=== PATIENT | male | born 1975 | race African-American/Black ===

== ENCOUNTER 2017-12-14 22:16 | Observation (INO) | payer OTHER ==
[~2017-12-14] VITALS: Ht 175.3 cm; Wt 104.4 kg
[~2017-12-14 22:16] MED LIST: CETI-17 PO; DAPA5TAB PO; DICL100G18 TP; ENOXAPARIN ** NOTE DOSE ** SYRINGE SQ ONE; LOSA100T6 PO; METF500T PO; PANT40TA3 PO; RANI-275 PO; TRIA15CR50 TP; [UNRECOGNIZED DRUG - OTHER]
[2017-12-14] MEDS ORDERED: NITROGLYCERIN OINT 1 GM PACKET. TP ONE ×2 (22:45→23:55)
[2017-12-14 22:54] LABS: BASO # 0.1 x10^3/uL (0.0-0.2); BASO % 1 % (0-3); EOS # 0.1 x10^3/uL (0.0-0.7); EOS % 1 % (0-3); HEMOGLOBIN 15.4 g/dL (13.0-17.5); LYMPH # 2.3 x10^3/uL (1.0-4.8); LYMPH % 27 % (24-48); MEAN CORPUSCULAR HEMOGLOBIN 28 pg (25-35); MEAN CORPUSCULAR HGB CONC 34 g/dL (31-37); MEAN CORPUSCULAR VOLUME 84 fL (79-100); MONO # 0.4 x10^3/uL (0.0-1.1); MONO % 5 % (0-9); NEUT # 5.6 x10^3uL (1.8-7.7); NEUT % 66 % (31-73); PLATELET COUNT 311 x10^3/uL (140-400); WHITE BLOOD COUNT 8.5 x10^3/uL (4.0-11.0)
[2017-12-14 23:13] LABS: CALCIUM 9.5 mg/dL (8.5-10.1); CREATININE 0.8 mg/dL (0.7-1.3); GFR 127.7; POTASSIUM 3.5 mmol/L (3.5-5.1)
--- NOTE | 2017-12-14 23:14 | ED.ADGEN ---
Past History Past Medical History: Diabetes, Hypertension Past Surgical History: Appendectomy, Knee Replacement, Other Smoking: Non-smoker Alcohol Use: None Drug Use: None Adult General Chief Complaint Chief Complaint ".. I developed chest pain.. to day... it isa heavy... I ve not had this before... It started at 630 ... and has never gone away..." HPI HPI Patient is a 42 year old male who presents with above hx and complaints. Prior history of angina or myocardial infarction. Patient does have a history of diabetes and hypertension. Patient denies any trauma. Patient denies any travel. Patient denies any ill contacts. Patient denies any cough or fevers. Patient states he has had several episodes of fast heart rate. Review of Systems Review of Systems Constitutional: Denies fever or chills [] Eyes: Denies change in visual acuity, redness, or eye pain [] HENT: Denies nasal congestion or sore throat [] Respiratory: Denies cough or shortness of breath [] Cardiovascular: No additional information not addressed in HPI [] GI: Denies abdominal pain, nausea, vomiting, bloody stools or diarrhea [] : Denies dysuria or hematuria [] Musculoskeletal: Denies back pain or joint pain [] Integument: Denies rash or skin lesions [] Neurologic: Denies headache, focal weakness or sensory changes [] Endocrine: Denies polyuria or polydipsia [] All other systems were reviewed and found to be within normal limits, except as documented in this note. Family History Family History On set of cardiac disease at age 40 Current Medications Current Medications Current Medications Medications (Trade) Dose Ordered Sig/[facility] Start Time Stop Time Status Last Admin Dose Admin Enoxaparin Sodium (Lovenox 120mg Syringe) 120 mg 1X ONCE 12/14/17 09:00 12/14/17 22:53 DC Nitroglycerin (Nitro-Bid Oint) 1 inch 1X ONCE 12/14/17 22:45 12/14/17 22:53 DC 12/14/17 23:58 1 INCH See nursing for home medications Allergies Allergies Allergies Coded Allergies Type Severity Reaction Last Updated Verified aspirin Allergy Unknown hives 07/06/16 Yes Physical Exam Physical Exam Constitutional: Moderately acute distress, non-toxic appearance. [] HENT: Normocephalic, atraumatic, bilateral external ears normal, oropharynx moist, no oral exudates, nose normal. [] Eyes: PERRLA, EOMI, conjunctiva normal, no discharge. [] Neck: Normal range of motion, no tenderness, supple, no stridor. [] Cardiovascular: Tachycardia Heart rate regular rhythm, no murmur [] Lungs & Thorax: Bilateral breath sounds equal at apex on auscultation [] Abdomen: Bowel sounds normal, soft, no tenderness, no masses, no pulsatile masses. [] Obese Skin: Warm, dry, no erythema, no rash. [] Back: No tenderness, no CVA tenderness. [] Extremities: No tenderness, no cyanosis, no clubbing, ROM intact, ankle edema. [ ] No cording appreciated Neurologic: Alert and oriented X 3, normal motor function, normal sensory function, no focal deficits noted. [] Psychologic: Affect anxious, judgement normal, mood normal. [] Current Patient Data Vital Signs Vital Signs Date Time Temp Pulse Resp B/P (MAP) Pulse Ox O2 Delivery O2 Flow Rate FiO2 12/14/17 22:16 98.2 112 22 99 Room Air Lab Results Laboratory Tests Test 12/14/17 22:27 White Blood Count 8.5 x10^3/uL (4.0-11.0) Red Blood Count 5.50 x10^6/uL (4.30-5.70) Hemoglobin 15.4 g/dL (13.0-17.5) Hematocrit 46.0 % (39.0-53.0) Mean Corpuscular Volume 84 fL (79-100) Mean Corpuscular Hemoglobin 28 pg (25-35) Mean Corpuscular Hemoglobin Concent 34 g/dL (31-37) Red Cell Distribution Width 14.0 % (11.5-14.5) Platelet Count 311 x10^3/uL (140-400) Neutrophils (%) (Auto) 66 % (31-73) Lymphocytes (%) (Auto) 27 % (24-48) Monocytes (%) (Auto) 5 % (0-9) Eosinophils (%) (Auto) 1 % (0-3) Basophils (%) (Auto) 1 % (0-3) Neutrophils # (Auto) 5.6 x10^3uL (1.8-7.7) Lymphocytes # (Auto) 2.3 x10^3/uL (1.0-4.8) Monocytes # (Auto) 0.4 x10^3/uL (0.0-1.1) Eosinophils # (Auto) 0.1 x10^3/uL (0.0-0.7) Basophils # (Auto) 0.1 x10^3/uL (0.0-0.2) Prothrombin Time 10.5 SEC (9.4-11.4) Prothrombin Time INR 1.0 (0.9-1.1) D-Dimer (Shu) 0.26 mg/L (0.00-0.50) Sodium Level 140 mmol/L (136-145) Potassium Level 3.5 mmol/L (3.5-5.1) Chloride Level 103 mmol/L (98-107) Carbon Dioxide Level 23 mmol/L (21-32) Anion Gap 14 (6-14) Blood Urea Nitrogen 12 mg/dL (8-26) Creatinine 0.8 mg/dL (0.7-1.3) Estimated GFR (Cockcroft-Gault) 127.7 Glucose Level 102 mg/dL (70-99) H Calcium Level 9.5 mg/dL (8.5-10.1) Creatine Kinase 229 U/L (39-308) Creatine Kinase MB (Mass) 0.7 ng/mL (0.0-3.6) Creatine Kinase MB Relative Index 0.3 % (0-4) Troponin I Quantitative < 0.017 ng/mL (0-0.055) AQ-Btx-A-Type Natriuretic Peptide 6 pg/mL (0-124) EKG EKG My interpretation of EKG shows a sinus tachycardia heart and 7 bpm. There are some nonspecific anterior lateral changes. No findings acute STEMI with contralateral changes.[] Radiology/Procedures Radiology/Procedures I interpretation of chest x-ray shows[] no acute cardiopulmonary findings. Course & Med Decision Making Course & Med Decision Making Pertinent Labs and Imaging studies reviewed. (See chart for details) Admit to Dr. Braxton , cardiology consult [] Final Impression Final Impression 1. Chest pain 2. Tachycardia[] 3. Hx. HTN 4. Hx. DM Dragon Disclaimer Dragon Disclaimer This electronic medical record was generated, in whole or in part, using a voice recognition dictation system. GIGI TYLER MD Dec 14, 2017 23:14
[2017-12-14] MEDS ORDERED: ONDANSETRON ODT 4 MG TAB.RAPDIS PO ONE (23:55)
[2017-12-15] MEDS ORDERED: DEXTROSE 50% 25 GM / 50ML DISP.SYRIN. IV PRN (00:45)
[2017-12-15] MEDS ORDERED: ZOLP5TAB PO (00:58)
[2017-12-15] MEDS ORDERED: SERT100T PO (00:58)
[2017-12-15] MEDS ORDERED: ZOLPIDEM 5 MG TABLET. PO SCH (01:00)
[2017-12-15 01:04] VITALS: BP 150/84
--- NOTE | 2017-12-15 02:12 | RAD ---
PA and lateral chest x-ray HISTORY: Chest pain. FINDINGS: Heart size normal. Mediastinal silhouette is normal. No pneumothorax, pulmonary opacities or pleural effusions. Bones are unremarkable. IMPRESSION: No acute process. Electronically signed by: Omar Pablo MD (12/15/2017 2:09 AM) [facility]
[2017-12-15 02:28] LABS: BACTERIA,URINE 0 /HPF (0-FEW); BILIRUBIN,URINE NEG (NEG); CLARITY,URINE CLEAR; COLOR,URINE YELLOW; GLUCOSE,URINE NEG (NEG); NITRITE,URINE NEG (NEG); RBC,URINE 0 /HPF (0-2); SQUAMOUS EPITHELIAL CELL,UR OCC /LPF; UROBILINOGEN,URINE 1 mg/dL (0.2 mg/dL); WBC,URINE OCC /HPF (0-4)
[2017-12-15] MEDS ORDERED: ACETAMINOPHEN 500 MG TABLET PO PRN (02:45)
[2017-12-15 03:19] LABS: BASO # 0.1 x10^3/uL (0.0-0.2); BASO % 1 % (0-3); EOS # 0.1 x10^3/uL (0.0-0.7); EOS % 1 % (0-3); HEMATOCRIT 43.7 % (39.0-53.0); HEMOGLOBIN 14.6 g/dL (13.0-17.5); LYMPH # 2.3 x10^3/uL (1.0-4.8); LYMPH % 30 % (24-48); MEAN CORPUSCULAR HEMOGLOBIN 28 pg (25-35); MEAN CORPUSCULAR HGB CONC 33 g/dL (31-37); MEAN CORPUSCULAR VOLUME 84 fL (79-100); MONO # 0.5 x10^3/uL (0.0-1.1); MONO % 7 % (0-9); NEUT # 4.7 x10^3uL (1.8-7.7); NEUT % 62 % (31-73); PLATELET COUNT 288 x10^3/uL (140-400); RED BLOOD COUNT 5.23 x10^6/uL (4.30-5.70); WHITE BLOOD COUNT 7.6 x10^3/uL (4.0-11.0)
[2017-12-15 03:44] LABS: CALCIUM 9.3 mg/dL (8.5-10.1); CREATININE 0.9 mg/dL (0.7-1.3); GFR 111.4; POTASSIUM 3.9 mmol/L (3.5-5.1)
--- NOTE | 2017-12-15 03:48 | EKG ---
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
[2017-12-15] MEDS: NITROGLYCERIN OINT 1 GM PACKET. TP SCH ×2 (04:56→14:00)
[2017-12-15 05:29] VITALS: BP 131/76
[2017-12-15 05:31] VITALS: BP 131/76
[2017-12-15] MEDS: ONDANSETRON PF 4 MG/2 ML VIAL. IV PRN ×2 (05:36→15:46)
[2017-12-15] MEDS ORDERED: MORPHINE SULFATE 4 MG/ML DISP.SYRIN. ONE (08:20)
[2017-12-15] MEDS: MORPHINE SULFATE 4 MG/ML DISP.SYRIN. IV PRN ×3 (08:27→15:47)
[2017-12-15] MEDS ORDERED: PANTOPRAZOLE 40 MG TABLET. PO SCH (08:30)
[2017-12-15] MEDS ORDERED: SERTRALINE 100 MG TABLET. PO SCH (09:00)
[2017-12-15] MEDS ORDERED: ENOXAPARIN ** NOTE DOSE ** SYRINGE SQ SCH ×2 (09:00→21:00)
--- NOTE | 2017-12-15 09:25 | PDOC2 ---
CONSULT Date of Admission DATE: 12/15/17 TIME: :23 Reason for Consult: chest pain Problem List Problems Medical Problems: (1) Chest pain Status: Acute History of Present Illness Mr Parada is a 42 year old male with history of hypertension, hyperlipidemia, anxiety and depression who was admitted for evaluation of chest pain. He reports that he was laying down when he had sudden onset of chest heaviness, rapid heart rate and shortness of breath. He assumed it was anxiety but it did not resolve so he presented to the ED for evaluation. He denies any increase of symptoms with exertion, position change, deep inspiration. He is currently symptom free. He denies any similar symptoms previously. He denies any exertional symptoms. He reports that he has been struggling with depression, has not been working and has not been active for this reason. He does have stairs in his house that he is able to walk up and down without symptoms. He denies any congestive symptoms, prior palpitations. He denies lightheadedness, pre syncope or syncope. Cardiovascular: HTN, hyperipidemia GI: GERD Psych: Anxiety, Depression Endocrine: Diabetes Past Surgical History right shoulder, right knee and appendectomy Family History: Diabetes, Hypertension Social History 1/2 ppd smoker, no significant ETOH, no illicit drugs Current Medications Current Medications Nitroglycerin (Nitro-Bid Oint) 1 inch 1X ONCE TP Last administered on at 23:58; Start 12/14/17 at 22:45; Stop 12/14/17 at 22:53; Status DC Enoxaparin Sodium (Lovenox 120mg Syringe) 120 mg 1X ONCE SQ ; Start 12/14/17 at 09:00; Stop 12/14/17 at 22:53; Status DC Enoxaparin Sodium (Lovenox 120mg Syringe) 120 mg BID SQ ; Start 12/15/17 at 09: 00 Nitroglycerin (Nitro-Bid Oint) 1 inch Q8HRS TP ; Start 12/15/17 at 06:00 Nitroglycerin (Nitro-Bid Oint) 1 inch 1X ONCE TP Last administered on at 23:53; Start 12/14/17 at 23:55; Stop 12/14/17 at 23:56; Status DC Ondansetron HCl (Zofran Odt) 8 mg 1X ONCE PO Last administered on 12/14/17at 23 :55; Start 12/14/17 at 23:55; Stop 12/14/17 at 23:56; Status DC Dextrose 12.5 gm PRN Q15MIN PRN IV SEE COMMENTS; Start 12/15/17 at 00:45 Zolpidem Tartrate (Ambien) 5 mg QHS PO Last administered on 12/15/17at 01:18; Start 12/15/17 at 01:00 Acetaminophen (Tylenol) 500 mg PRN Q6HRS PRN PO PAIN / TEMP Last administered on 12/15/17at 02:43; Start 12/15/17 at 02:45 Ondansetron HCl (Zofran) 4 mg PRN Q6HRS PRN IV NAUSEA/VOMITING Last administered on 12/15/17at 05:36; Start 12/15/17 at 05:30 Sertraline HCl (Zoloft) 150 mg DAILY PO ; Start 12/15/17 at 09:00 Pantoprazole Sodium (Protonix) 40 mg DAILYAC PO ; Start 12/15/17 at 08:30 Morphine Sulfate (Morphine 4mg Syringe) 4 mg PRN Q4HRS PRN IV PAIN Last administered on 12/15/17at 08:27; Start 12/15/17 at 08:15 Active Scripts Active Reported Ambien (Zolpidem Tartrate) 5 Mg Tablet 1 Tab PO QHS Zoloft (Sertraline Hcl) 100 Mg Tablet 150 Mg PO DAILY Protonix (Pantoprazole Sodium) 40 Mg Tablet.dr 40 Mg PO Glucophage (Metformin Hcl) 500 Mg Tablet 500 Mg PO BIDWMEALS Allergies: Coded Allergies: aspirin (Verified Allergy, Unknown, hives, 07/06/16) Review of System as per HPI General: Alert, Oriented X3, Cooperative, No acute distress HEENT: Atraumatic, EOMI Lungs: Clear to auscultation, Normal air movement Heart: Regular rate, Normal S1, Normal S2, No murmurs Abdomen: Normal bowel sounds, Soft, No tenderness Extremities: No cyanosis, No edema, Normal pulses Neuro: Normal speech, Strength at 5/5 X4 ext Psych/Mental Status: Mental status NL, Mood NL VITALS Vital Signs Date Time Temp Pulse Resp B/P (MAP) Pulse Ox O2 Delivery O2 Flow Rate FiO2 12/15/17 08:27 98 12/15/17 05:31 98.5 84 18 131/76 (94) Nasal Cannula 2.0 Labs Laboratory Tests Test 12/14/17 22:27 12/14/17 22:31 12/15/17 01:33 12/15/17 02:50 White Blood Count 8.5 x10^3/uL (4.0-11.0) 7.6 x10^3/uL (4.0-11.0) Red Blood Count 5.50 x10^6/uL (4.30-5.70) 5.23 x10^6/uL (4.30-5.70) Hemoglobin 15.4 g/dL (13.0-17.5) 14.6 g/dL (13.0-17.5) Hematocrit 46.0 % (39.0-53.0) 43.7 % (39.0-53.0) Mean Corpuscular Volume 84 fL (79-100) 84 fL (79-100) Mean Corpuscular Hemoglobin 28 pg (25-35) 28 pg (25-35) Mean Corpuscular Hemoglobin Concent 34 g/dL (31-37) 33 g/dL (31-37) Red Cell Distribution Width 14.0 % (11.5-14.5) 14.0 % (11.5-14.5) Platelet Count 311 x10^3/uL (140-400) 288 x10^3/uL (140-400) Neutrophils (%) (Auto) 66 % (31-73) 62 % (31-73) Lymphocytes (%) (Auto) 27 % (24-48) 30 % (24-48) Monocytes (%) (Auto) 5 % (0-9) 7 % (0-9) Eosinophils (%) (Auto) 1 % (0-3) 1 % (0-3) Basophils (%) (Auto) 1 % (0-3) 1 % (0-3) Neutrophils # (Auto) 5.6 x10^3uL (1.8-7.7) 4.7 x10^3uL (1.8-7.7) Lymphocytes # (Auto) 2.3 x10^3/uL (1.0-4.8) 2.3 x10^3/uL (1.0-4.8) Monocytes # (Auto) 0.4 x10^3/uL (0.0-1.1) 0.5 x10^3/uL (0.0-1.1) Eosinophils # (Auto) 0.1 x10^3/uL (0.0-0.7) 0.1 x10^3/uL (0.0-0.7) Basophils # (Auto) 0.1 x10^3/uL (0.0-0.2) 0.1 x10^3/uL (0.0-0.2) Prothrombin Time 10.5 SEC (9.4-11.4) Prothromb Time International Ratio 1.0 (0.9-1.1) D-Dimer (Shu) 0.26 mg/L (0.00-0.50) Sodium Level 140 mmol/L (136-145) 139 mmol/L (136-145) Potassium Level 3.5 mmol/L (3.5-5.1) 3.9 mmol/L (3.5-5.1) Chloride Level 103 mmol/L (98-107) 103 mmol/L (98-107) Carbon Dioxide Level 23 mmol/L (21-32) 30 mmol/L (21-32) Anion Gap 14 (6-14) 6 (6-14) Blood Urea Nitrogen 12 mg/dL (8-26) 12 mg/dL (8-26) Creatinine 0.8 mg/dL (0.7-1.3) 0.9 mg/dL (0.7-1.3) Estimated GFR (Cockcroft-Gault) 127.7 111.4 Glucose Level 102 mg/dL (70-99) 88 mg/dL (70-99) Calcium Level 9.5 mg/dL (8.5-10.1) 9.3 mg/dL (8.5-10.1) Creatine Kinase 229 U/L (39-308) Creatine Kinase MB (Mass) 0.7 ng/mL (0.0-3.6) Creatine Kinase MB Relative Index 0.3 % (0-4) Troponin I Quantitative < 0.017 ng/mL (0-0.055) < 0.017 ng/mL (0-0.055) HF-Xmg-M-Type Natriuretic Peptide 6 pg/mL (0-124) Bedside Troponin I 0.00 ng/ml (<0.08) Urine Collection Type Unknown Urine Color Yellow Urine Clarity Clear Urine pH 6.0 Urine Specific [place] 1.020 Urine Protein 30 mg/dl (NEG-TRACE) Urine Glucose (UA) Neg mg/dL (NEG) Urine Ketones (Stick) Trace mg/dL (NEG) Urine Blood Neg (NEG) Urine Nitrite Neg (NEG) Urine Bilirubin Neg (NEG) Urine Urobilinogen Dipstick 1 mg/dL (0.2 mg/dL) Urine Leukocyte Esterase Neg (NEG) Urine RBC 0 /HPF (0-2) Urine WBC Occ /HPF (0-4) Urine Squamous Epithelial Cells Occ /LPF Urine Bacteria 0 /HPF (0-FEW) Test 12/15/17 07:46 12/15/17 08:32 Glucose (Fingerstick) 101 mg/dL (70-99) Troponin I Quantitative < 0.017 ng/mL (0-0.055) Images EKG sinus tachycardia, no acute ischemic abn. CXR - IMPRESSION: No acute process. Assessment/Plan 1. Chest pain, non exertional - CE negative x2, EKG without acute ischemic changes. Suggest echo and ambulation. Add plavix (asa allergy) and metoprolol. If no recurrence of chest pain and no significant abnormalities on testing could have outpatient stress testing. Check lipids. 2. Hypertension - await echo, add Beta augusto 3. hyperlipidemia - check lipids and add statin as indicated 4. GERD continue PPI, per IM. 5. DM per IM. 6. anxiety / depression per IM. ZEUS RAHMAN HARNESS PREPARER Dec 15, 2017 09:25
[2017-12-15 11:27] VITALS: BP 149/81
[2017-12-15] MEDS ORDERED: CLOPIDOGREL BISULFATE 75 MG TABLET PO SCH (12:30)
--- NOTE | 2017-12-15 14:36 | HP ---
ADMIT DATE: 12/14/2017 HISTORY OF PRESENT ILLNESS: The patient is a 42-year-old -[place] male patient who came to the Emergency Room with a complaint of chest pain that started when he was lying down with sudden onset of chest heaviness, rapid heart rate and shortness of breath. Initially, he thought this is just anxiety, but did not resolve, so he presented to Emergency Room Department for evaluation. He said the pain started around 6:30 in the evening and again he decided to come to the Emergency Room around 10:30. The nitro paste did not really help relieve the pain, only morphine helped his chest pain. He did complain also of nausea and vomiting. He said that also he was diaphoretic and short of breath, but the exertion, changing position or deep inspiration did not really precipitate or aggravate the pain. He denied any symptoms like this before. Denied any orthopnea or paroxysmal nocturnal dyspnea. He has been struggling with depression, has not been working and has not been active for that reason. He was basically evaluated in the Emergency Room, has had an EKG, which was read as sinus tachycardia with no acute ischemic changes. His first set of cardiac enzymes was negative with a troponin of less than 0.017 ng/mL. The patient therefore was admitted to do 2 more sets of cardiac enzyme and check his fasting lipid profile and consult the cardiology team. PAST MEDICAL HISTORY: Significant for hypertension, type 2 diabetes for which he is on metformin. He is known to have morbid obesity, obstructive sleep apnea, gastroesophageal reflux disease. PAST SURGICAL HISTORY: Significant for right shoulder surgery, vasectomy, appendectomy, sinus surgery, right knee arthroscopic surgery, has severe esophagogastroduodenoscopy and colonoscopy. ALLERGIES: HE IS ALLERGIC TO ASPIRIN. MEDICATIONS: He is currently on sertraline for Zoloft 150 mg daily, Ambien 5 mg at bedtime, Protonix 40 mg daily and metformin 500 mg twice a day with meals. FAMILY HISTORY: He has 2 younger sisters who are healthy. His father is alive at the age of 63 and has diabetes and hypertension. Mother is alive at age of 63 and has diabetes and hypertension. SOCIAL HISTORY: He is , has 1 daughter. He smokes 1 pack in 2 days. He drinks alcohol occasionally. He does not use any drugs. 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 REVIEW OF SYSTEMS: The patient denied any blurring of vision, cataract, glaucoma or macular degeneration. Denied any earache, tinnitus or sensorineural deafness. Denied any nosebleeds, stuffy nose or postnasal drip. Denied any sore throat, sore tongue, toothache, hoarseness of voice or difficulty swallowing. He did lose weight. He said he lost weight from 262-235 intentionally. Denied any hematemesis, melena or hematochezia. Denied any dysuria, frequency or hematuria. Denied any orthopnea or paroxysmal nocturnal dyspnea. PHYSICAL EXAMINATION: GENERAL: When I examined him, he looked well and was clearly in no apparent respiratory distress. No pallor, jaundice, cyanosis, or thyromegaly. No jugular venous distension. No limb edema. His heart rate was 112, blood pressure was 140/81. His temperature was 98.2, respiratory rate was 22 and oxygen saturation was 99% on room air. HEAD, EYES, EARS, NOSE AND THROAT: Showed normocephalic, atraumatic. NECK: Supple. HEART: Showed normal first and second heart sounds with no gallop, rub or murmur. CHEST: Clear to auscultation. No crepitation or rhonchi. ABDOMEN: Distended, soft, nontender. NEUROLOGIC: He was awake, alert, responding appropriately. All cranial nerves intact. He moves extremities without difficulty, ambulates without assistance or assistive devices. LABORATORY DATA: While in the Emergency Room, he has lab work including a CBC with a white cell count of 8500, hemoglobin 15, hematocrit 46, MCV 84 and platelet count 311,000 with normal manual differential. His chemistry showed a serum sodium 140, potassium 3.5, chloride 103, bicarbonate 23, anion gap of 14, BUN 12, creatinine 0.8, estimated GFR was 127 beats per minute, his glucose was 102. His calcium was 9.5. CK-MB was 229. First set of cardiac enzymes showed troponin to be less than 0.017. His prothrombin time was 10.5, INR of 1. D-dimer was 0.26 mg/dL. Urinalysis was essentially unremarkable. His EKG showed that he was in sinus tachycardia with no ST-T changes. ASSESSMENT AND PLAN: The patient was admitted to rule out myocardial infarction. We will do 2 more sets of cardiac enzyme, consult the Cardiology team and to check his fasting lipid profile and decide the further management accordingly. JOSEPH CHIU MD DR: Johnnie JOB#: [id number] / [id number]
[2017-12-15 15:12] VITALS: BP 170/91
--- NOTE | 2017-12-15 17:02 | CARD ---
MR#: [id number] Date of Study: 12/15/2017 Ordering Physician: ZEUS RAHMAN, Referring Physician: JOSEPH CHIU Tech: YOHAN Vergara APPROVED REPORT EXAM: Two-dimensional and M-mode echocardiogram with Doppler and color Doppler. INDICATION Hypertension/HCVD Chest Pain 2D DIMENSIONS Left Atrium(2D)3.6 (1.6-4.0cm)IVSd1.0 (0.7-1.1cm) LVDd5.1 (3.9-5.9cm)LVOT Diameter2.3 (1.8-2.4cm) PWd1.2 (0.7-1.1cm)LVDs2.7 (2.5-4.0cm) FS (%) 31.0 %SV98.4 ml Aortic Valve AoV Peak Tariq.136.2cm/Khadra Peak GR.7.4mmHg LVOT Peak Tariq.84.9cm/sAVA (VMAX)2.62cm2 Mitral Valve MV E Mdnhddbq03.3cm/sMV DECEL [id number] MV A Gkxpyfrs95.2cm/sE/A Ratio1.2 Tricuspid Valve TR P. [id number]/sRAP [id number] TR Peak Gr.42hfBjYYZW45vlVa LEFT VENTRICLE The left ventricle is normal size. There is borderline concentric left ventricular hypertrophy. The l eft ventricular systolic function is normal and the ejection fraction is within normal range. The Eje ction Fraction is 60-65%. There is normal LV segmental wall motion. RIGHT VENTRICLE The right ventricle is normal size. There is normal right ventricular wall thickness. The right ventr icular systolic function is normal. ATRIA The left atrium size is normal. The right atrium size is normal. The interatrial septum is intact wit h no evidence for an atrial septal defect or patent foramen ovale as noted on 2-D or Doppler imaging. AORTIC VALVE The aortic valve is normal in structure and function. Doppler and Color Flow revealed no significant aortic regurgitation. There is no significant aortic valvular stenosis. MITRAL VALVE The mitral valve is normal in structure and function. There is no mitral valve stenosis. Doppler and Color Flow revealed no mitral valve regurgitation noted. TRICUSPID VALVE Doppler and Color Flow revealed trace tricuspid regurgitation. There is no tricuspid valve stenosis. PULMONIC VALVE Doppler and Color Flow revealed no pulmonic valvular regurgitation. There is no pulmonic valvular chloé nosis. GREAT VESSELS The aortic root is normal in size. The IVC is normal in size and collapses >50% with inspiration. PERICARDIAL EFFUSION There is no pleural effusion. There is no evidence of significant pericardial effusion. Critical Notification Critical Value: No <Conclusion> The left ventricle is normal size. The left ventricular systolic function is normal and the ejection fraction is within normal range. The Ejection Fraction is 60-65%. There is borderline concentric left ventricular hypertrophy. There is no significant aortic valvular stenosis. Doppler and Color Flow revealed no significant aortic regurgitation. Doppler and Color Flow revealed no mitral valve regurgitation noted. Doppler and Color Flow revealed trace tricuspid regurgitation. There is no evidence of significant pericardial effusion. Signed by : Barak Stokes MD Electronically Approved : 12/15/2017 17:00:54
--- NOTE | 2017-12-15 18:51 | DS ---
DATE OF DISCHARGE: 12/15/2017 HISTORY OF PRESENT ILLNESS: This is a 42-year-old -[place] male patient who was evaluated in the Emergency Room for chest pain, his first set of cardiac enzyme was normal and was admitted to do 2 more sets of cardiac enzyme, consult the Cardiology and check his fasting lipid profile. He apparently has had 2 more sets of cardiac enzymes that were negative. He was evaluated by the Cardiology team and basically the recommendation was to do an echocardiogram, if normal, the patient can be discharged and a stress test can be done as an outpatient. So, his echocardiogram was done and it showed that his left ventricular size is normal. Left ventricular systolic function is normal with ejection fraction of 60% to 65%, borderline concentric left ventricular hypertrophy. No significant aortic valvular stenosis, no aortic regurgitation, no mitral valve regurgitation, trace tricuspid regurgitation, no significant pericardial effusion. The patient will be discharged home to continue on all his medication. PHYSICAL EXAMINATION: GENERAL: When I saw him this afternoon, he looked well and was clearly in no apparent respiratory distress. No pallor, jaundice, cyanosis, or thyromegaly. No jugular venous distension. No limb edema. VITAL SIGNS: His heart rate was 70, blood pressure was 170/91, temperature was 98.2, respiratory rate 20, and oxygen saturation was 98% on room air. HEAD, EYES, EARS, NOSE AND THROAT: Showed normocephalic, atraumatic. NECK: Supple. HEART: Showed normal first and second sounds. No gallop, rub or murmur. CHEST: Clear to auscultation. No crepitation or rhonchi. ABDOMEN: Distended, soft, nontender. No guarding or rigidity. No organomegaly. All hernial orifices are intact. Bowel sounds are normal. NEUROLOGIC: He was awake, alert, responding appropriately. All cranial nerves are intact. EXTREMITIES: He moves extremities without difficulty. LABORATORY DATA: As I stated, he has 2 more sets of cardiac enzymes that were negative. His echocardiogram showed normal left ventricular systolic function with normal ejection fraction of 60% to 65%. No wall motion abnormalities and no significant valvular stenosis or regurgitation. His fasting lipid profile showed serum triglycerides to be 88, cholesterol 192, his LDL cholesterol 106, VLDL was 17, and HDL cholesterol was 69 and cholesterol to HDL cholesterol ratio was 2. DISCHARGE MEDICATIONS: He was discharged home to continue on metformin 500 mg twice a day, Protonix 40 mg twice a day, sertraline for Zoloft 150 mg daily and Ambien 5 mg at bedtime. FINAL DISCHARGE DIAGNOSES: 1. Chest pain, myocardial infarction ruled out. Three sets of cardiac enzymes were normal. Echocardiogram was normal. The patient will be discharged home to follow up for an outpatient stress test. 2. Other medical problems include hypertension, type 2 diabetes, morbid obesity, obstructive sleep apnea, and gastroesophageal reflux disease. JOSEPH CHIU MD DR: HAYDEE/sharyn JOB#: [id number] / [id number]
== END 2017-12-15 17:45 | disposition home or self-care (01) ==
LOC: ER 22:16 → 1 SOUTH 23:15 → INTOOBSV 23:15
PROVIDERS: ADMIT Internal Medicine; ATTEND Internal Medicine
DX: R07.89 Other chest pain (principal); E11.9 Type 2 diabetes mellitus without complications; E66.01 Morbid (severe) obesity due to excess calories; E78.5 Hyperlipidemia, unspecified; F17.210 Nicotine dependence, cigarettes, uncomplicated; F32.9 Major depressive disorder, single episode, unspecified; F41.9 Anxiety disorder, unspecified; G47.33 Obstructive sleep apnea (adult) (pediatric); I25.2 Old myocardial infarction; K21.9 Gastro-esophageal reflux disease without esophagitis; Z82.49 Family history of ischemic heart disease and other diseases of the circulatory system; I51.7 Cardiomegaly; Z83.3 Family history of diabetes mellitus; Z90.49 Acquired absence of other specified parts of digestive tract; Z96.659 Presence of unspecified artificial knee joint
CPT/HCPCS: 36415; 71046; 80048; 80061; 81001; 82553; 82947; 83880; 84484; 85025; 85379; 85610; 93005; 93306; 96374; 96375; 96376; 99285; G0378; G0379; J2270; J2405; Q0162

== ENCOUNTER 2021-03-03 21:39 | Emergency (ER) | payer OTHER ==
[~2021-03-03] VITALS: Ht 175.3 cm; Wt 108.1 kg
[~2021-03-03 21:39] MED LIST changes: +ALBU2.5V8 IH; +AMLO-186 PO; +CYCL-331 PO; +DULA0.75 SQ; -ENOXAPARIN ** NOTE DOSE ** SYRINGE SQ ONE; +LOSA100T14 PO; -LOSA100T6 PO; +LOSA50TA86 PO; +METF500T16 PO; +MIRT-35 PO; -RANI-275 PO; +RANI-375 PO; +SERT100T PO; +SUMA100T4 PO; +TRAZ-120 PO; +ZOLP5TAB PO
[2021-03-03 22:10] VITALS: BP 160/91
[2021-03-03] MEDS ORDERED: ORPH-16 PO (22:21)
[2021-03-03] MEDS ORDERED: BUTA1TAB23 PO (22:21)
--- NOTE | 2021-03-03 22:21 | PHYS DOC ---
Past History Past Medical History: Diabetes, High Cholesterol, Hypertension Additional Past Medical Histor: Heart murmur Past Surgical History: Appendectomy, Knee Replacement, Tonsillectomy, Other Additional Past Surgical Histo: shoulder surgery Smoking: Non-smoker Alcohol Use: Occasionally Drug Use: None General Adult EDM: Chief Complaint: SHOULDER INJURY HPI: HPI: Patient is a [age] year old [sex] who presents with [] Review of Systems: Review of Systems: Constitutional: Denies fever or chills Eyes: Denies change in visual acuity HENT: Denies nasal congestion or sore throat Respiratory: Denies cough or shortness of breath Cardiovascular: Denies chest pain or edema GI: Denies abdominal pain, nausea, vomiting, bloody stools or diarrhea : Denies dysuria Musculoskeletal: Denies back pain or joint pain Integument: Denies rash Neurologic: Denies headache, focal weakness or sensory changes Endocrine: Denies polyuria or polydipsia Lymphatic: Denies swollen glands Psychiatric: Denies depression or anxiety Allergies: Allergies: Allergies Coded Allergies Type Severity Reaction Last Updated Verified aspirin Allergy Intermediate hives 12/17/20 Yes morphine Adverse Reaction Mild vomiting 12/19/20 Yes Physical Exam: PE: Constitutional: Well developed, well nourished, no acute distress, non-toxic appearance. [] HENT: Normocephalic, atraumatic, bilateral external ears normal, oropharynx moist, no oral exudates, nose normal. [] Eyes: PERRLA, EOMI, conjunctiva normal, no discharge. [] Neck: Normal range of motion, no tenderness, supple, no stridor. [] Cardiovascular:Heart rate regular rhythm, no murmur [] Lungs & Thorax: Bilateral breath sounds clear to auscultation [] Abdomen: Bowel sounds normal, soft, no tenderness, no masses, no pulsatile masses. [] Skin: Warm, dry, no erythema, no rash. [] Back: No tenderness, no CVA tenderness. [] Extremities: No tenderness, no cyanosis, no clubbing, ROM intact, no edema. [] Neurologic: Alert and oriented X 3, normal motor function, normal sensory function, no focal deficits noted. [] Psychologic: Affect normal, judgement normal, mood normal. [] Current Patient Data: Vital Signs: Vital Signs Date Time Temp Pulse Resp B/P (MAP) Pulse Ox O2 Delivery O2 Flow Rate FiO2 03/03/21 22:10 98.4 98 18 160/91 (114) 97 Room Air EKG: EKG: [] Radiology/Procedures: Radiology/Procedures: [] Heart Score: Risk Factors: Risk Factors: DM, Current or recent (<one month) smoker, HTN, HLP, family history of CAD, obesity. Risk Scores: Score 0 - 3: 2.5% MACE over next 6 weeks - Discharge Home Score 4 - 6: 20.3% MACE over next 6 weeks - Admit for Clinical Observation Score 7 - 10: 72.7% MACE over next 6 weeks - Early Invasive Strategies Course & Med Decision Making: Course & Med Decision Making Pertinent Labs and Imaging studies reviewed. (See chart for details) [] Dragon Disclaimer: Dragon Disclaimer: This electronic medical record was generated, in whole or in part, using a voice recognition dictation system. Departure Departure: Impression: Primary Impression: Headache Qualified Codes: R51.9 - Headache, unspecified Additional Impression: Neck pain Disposition: HOME / SELF CARE / HOMELESS Condition: STABLE Referrals: HENRIK MORALES PAC (PCP) Patient Instructions: Cervical Radiculopathy, [id number], Headache, FAQs Additional Instructions: Follow closely with your doctors regarding further evaluation and treatment of your known "pinched nerve". You may also call pain management doctor: Dr. Brad Centeno 2010 [facility], [address] [place] [address] Scripts Butalb/Acetaminophen/Caffeine (YESJVO-[id number]-LFQY 50-325-40) 1 Each Tablet 1 EACH PO Q6HRS PRN for HEADACHE, #14 TAB Prov: SURENDRA BOURNE DO 03/03/21 Orphenadrine Citrate (ORPHENADRINE CITRATE) 100 Mg Tablet.er 1 TAB PO BID PRN for MUSCLE PAIN, #14 TAB 0 Refills Prov: SURENDRA BOURNE DO 03/03/21 SURENDRA BOURNE DO Mar 03, 2021 22:21
[2021-03-03] MEDS: BUTALB/APAP/CAFEIN 50/325/40MG TABLET. PO ONE (22:25)
[2021-03-03] MEDS: KETOROLAC 30 MG/ML VIAL. IM ONE (22:25)
[2021-03-03] MEDS: DEXAMETHASONE 4 MG TABLET PO ONE (22:25)
== END 2021-03-03 22:46 | disposition home or self-care (01) ==
LOC: ER 21:39
DX: R51.9 Headache, unspecified (principal); M54.2 Cervicalgia; E11.9 Type 2 diabetes mellitus without complications; E78.00 Pure hypercholesterolemia, unspecified; I10 Essential (primary) hypertension; Z88.6 Allergy status to analgesic agent; Z88.5 Allergy status to narcotic agent
CPT/HCPCS: 96372; 99283; J1885; J8540

== ENCOUNTER 2021-09-27 16:15 | Emergency (ER) | payer OTHER ==
[~2021-09-27] VITALS: Ht 175.3 cm; Wt 106.4 kg
[~2021-09-27 16:15] MED LIST changes: +BUTA1TAB23 PO; -CYCL-331 PO; +CYCL10TA19 PO; +ORPH-16 PO
--- NOTE | 2021-09-27 17:50 | PHYS DOC ---
Past History Past Medical History: Diabetes, High Cholesterol, Hypertension, Migraines Additional Past Medical Histor: Heart murmur (JOSHUA GUSMAN APRN) Past Surgical History: Appendectomy, Knee Replacement, Tonsillectomy, Other Additional Past Surgical Histo: shoulder surgery (JOSHUA GUSMAN APRN) Smoking: Cigarettes Alcohol Use: Occasionally Drug Use: None (JOSHUA GUSMAN APRN) General Adult EDM: Chief Complaint: MULTIPLE COMPLAINTS HPI: HPI: Patient is a 45-year-old male who presents to the emergency department for a "migraine headache" that started 1 week ago. Patient reports bilateral head pain that he rates 8 out of 10. He is also reporting nausea, vomiting, diarrhea, chills, fever, photophobia. He reports having a history of migraine headaches and he takes Imitrex. He took Tylenol and ibuprofen at 1300. Patient reports that his temperature at home yesterday was 102 degrees. Patient denies any sick exposures, neck stiffness, thunderclap headache, worst headache of his life, photophobia, rash. (JOSHUA GUSMAN APRN) Review of Systems: Review of Systems: Constitutional: See HPI Eyes: See HPI HENT: See HPI GI: See HPI Musculoskeletal: See HPI Integument: See HPI Neurologic: See HPI (JOSHUA GUSMAN APRN) Current Medications: Current Meds: Current Medications Medications (Trade) Dose Ordered Sig/Jessica Start Time Stop Time Status Last Admin Dose Admin Diphenhydramine HCl (Benadryl) 25 mg 1X ONCE 09/27/21 17:45 09/27/21 17:46 UNV Ketorolac Tromethamine (Toradol 30mg Vial) 30 mg 1X ONCE 09/27/21 17:45 09/27/21 17:46 UNV Prochlorperazine Edisylate (Compazine) 10 mg 1X ONCE 09/27/21 17:45 09/27/21 17:46 UNV Sodium Chloride 1,000 ml @ 1,000 mls/hr 1X ONCE 09/27/21 17:45 09/27/21 18:44 UNV (JOSHUA GUSMAN APRN) Allergies: Allergies: Allergies Coded Allergies Type Severity Reaction Last Updated Verified aspirin Allergy Intermediate hives 12/17/20 Yes morphine Adverse Reaction Mild vomiting 12/19/20 Yes (JOSHUA GUSMAN APRN) Physical Exam: PE: Constitutional: Well developed, well nourished, no acute distress, non-toxic amber earance. [] HENT: Normocephalic, atraumatic, bilateral external ears normal, normal- appearing right tympanic membrane, left tympanic membrane is erythematous and intact, oropharynx moist, no oral exudates, nose normal. [] Eyes: PERRL, photophobia, 5 mm bilaterally, EOMI, conjunctiva normal, no discharge. [] Neck: Normal range of motion, no tenderness, no neutral rigidity, supple, no stridor. [] Cardiovascular:Heart rate regular rhythm, no murmur [] Lungs & Thorax: Bilateral breath sounds clear to auscultation [] Abdomen: Bowel sounds normal, soft, no tenderness, no masses, obese, no pulsatile masses. [] Skin: Warm, dry, no erythema, no rash. [] Back: No tenderness, normal range of motion Extremities: No tenderness, no cyanosis, no clubbing, ROM intact, no edema. [] Neurologic: Alert and oriented X 3, normal motor function, normal sensory function, no focal deficits noted, no pronator drift, no slurred speech, no limb ataxia. [] Psychologic: Affect normal, judgement normal, mood normal. [] (JOSHUA GUSMAN APRN) Current Patient Data: Labs: Laboratory Tests Test 09/27/21 17:26 09/27/21 18:01 White Blood Count 5.7 x10^3/uL Red Blood Count 4.90 x10^6/uL Hemoglobin 13.8 g/dL Hematocrit 41.1 % Mean Corpuscular Volume 84 fL Mean Corpuscular Hemoglobin 28 pg Mean Corpuscular Hemoglobin Concent 34 g/dL Red Cell Distribution Width 13.5 % Platelet Count 229 x10^3/uL Neutrophils (%) (Auto) 58 % Lymphocytes (%) (Auto) 33 % Monocytes (%) (Auto) 6 % Eosinophils (%) (Auto) 2 % Basophils (%) (Auto) 1 % Neutrophils # (Auto) 3.3 x10^3uL Lymphocytes # (Auto) 1.9 x10^3/uL Monocytes # (Auto) 0.4 x10^3/uL Eosinophils # (Auto) 0.1 x10^3/uL Basophils # (Auto) 0.0 x10^3/uL Sodium Level 137 mmol/L Potassium Level 4.0 mmol/L Chloride Level 105 mmol/L Carbon Dioxide Level 26 mmol/L Anion Gap 6 Blood Urea Nitrogen 9 mg/dL Creatinine 0.7 mg/dL Estimated GFR (Cockcroft-Gault) 146.9 BUN/Creatinine Ratio 13 Glucose Level 105 mg/dL Lactic Acid Level 1.6 mmol/L Calcium Level 8.8 mg/dL Total Bilirubin 0.3 mg/dL Aspartate Amino Transf (AST/SGOT) 21 U/L Alanine Aminotransferase (ALT/SGPT) 51 U/L Alkaline Phosphatase 73 U/L Total Protein 7.3 g/dL Albumin 3.7 g/dL Albumin/Globulin Ratio 1.0 Influenza Type A (Rapid) Negative Influenza Type B (Rapid) Negative SARS-CoV-2 Antigen (Rapid) Negative Current Medications Medications (Trade) Dose Ordered Sig/Jessica Route PRN Reason Start Time Stop Time Status Last Admin Dose Admin Sodium Chloride 1,000 ml @ 1,000 mls/hr 1X ONCE IV 09/27/21 17:45 09/27/21 18:44 DC 09/27/21 17:59 Prochlorperazine Edisylate (Compazine) 10 mg 1X ONCE IV 09/27/21 17:45 09/27/21 17:51 DC 09/27/21 17:58 Diphenhydramine HCl (Benadryl) 25 mg 1X ONCE IVP 09/27/21 17:45 09/27/21 17:51 DC 09/27/21 17:58 Ketorolac Tromethamine (Toradol 30mg Vial) 30 mg 1X ONCE IVP 09/27/21 17:45 09/27/21 17:51 DC 09/27/21 17:56 Dexamethasone Sodium Phosphate (Decadron) 10 mg 1X ONCE IVP 09/27/21 18:45 09/27/21 18:50 DC 09/27/21 19:01 Vital Signs: Vital Signs Date Time Temp Pulse Resp B/P (MAP) Pulse Ox O2 Delivery O2 Flow Rate FiO2 09/27/21 17:13 99.1 100 18 154/98 (116) 97 Room Air (JOSHUA GUSMAN APRN) EKG: EKG: [] (JOSHUA GUSMAN APRN) Radiology/Procedures: Radiology/Procedures: []ROCEDURE: CHEST PA & LATERAL XR CHEST 2V Technique: PA and lateral views of the chest were obtained. Clinical History: Reason: fever / Spl. Instructions: / History: Comparison: December 17, 2020. Findings: The heart and pulmonary vasculature appear within normal limits. The lungs are clear. The pleural margins are clear. Impression: No acute chest process is seen. Electronically signed by: Oleg Diaz III, MD (09/27/2021 7:02 PM) [facility] DICTATED AND SIGNED BY: OLEG DIAZ III, MD DATE: 09/27/21 190 CC: MIGUEL ANGEL KRISHNA MD; JOSHUA GUSMAN APRN; HENRIK MORALES PAC ~PROCEDURE: CT HEAD WO CONTRAST CT Head W/O Contrast: History: Reason: headache, n/v fevrs / Spl. Instructions: / History: Comparison: December 18, 2020 Axial images were obtained without contrast. The vasquez and white matter appears normal and symmetrical for the patients age. There is no mass effect, extraaxial fluid collections or hydrocephalus. There is no gross bleed. There is no focal loss of vasquez-white matter distinction to suggest acute ischemia, i.e. stroke. Impression: No acute findings. RS Compliance Statement: One or more of the following individualized dose reduction techniques were utilized for this examination: 1. Automated exposure control 2. Adjustment of the mA and/or kV according to patient size 3. Use of iterative reconstruction technique Electronically signed by: Oleg Diaz III, MD (09/27/2021 5:53 PM) [facility] DICTATED AND SIGNED BY: OLEG DIAZ III, MD DATE: 09/27/211750 CC: JOSHUA GUSMAN APRN; HENRIK MORALES PAC ~ (JOSHUA GUSMAN APRN) Heart Score: C/O Chest Pain: N/A Risk Factors: Risk Factors: DM, Current or recent (<one month) smoker, HTN, HLP, family history of CAD, obesity. Risk Scores: Score 0 - 3: 2.5% MACE over next 6 weeks - Discharge Home Score 4 - 6: 20.3% MACE over next 6 weeks - Admit for Clinical Observation Score 7 - 10: 72.7% MACE over next 6 weeks - Early Invasive Strategies (JOSHUA GUSMAN APRN) Course & Med Decision Making: Course & Med Decision Making Pertinent Labs and Imaging studies reviewed. (See chart for details) [] Patient presents to the emergency department for headache, nausea, vomiting, diarrhea, chills, photophobia, fevers. Patient has a history of headache. She reports that this feels like his migraine headaches. Negative Kernig's test, negative Brezinski's test. Work-up in the ER consisted of blood work including lactic acid and blood cultures, CT imaging of head. Patient treated with migraine cocktail and IV decadron. Discussed with supervising physician. Patient reports that he has been experiencing left ear pain. Upon physical assessment, he is noted to have a left ear infection which will be treated with an antibiotic. Patient's lab work is unremarkable. He does not have leukocytosis, no elevated lactic acid. His influenza and COVID test was negative. Imaging of his head and chest x-ray showed no acute findings. I discussed patient's findings with him. He reports that his symptoms have improved with the treatment in the emergency department and he would like to be discharged home. Patient advised to continue taking his Imitrex and follow-up with his primary care provider. I discussed with patient all findings and diagnostic testing as well as the need to follow-up with PCP for further evaluation and treatment or return to the ER if any new or worsening symptoms. Strict return precautions were also discussed at length. Patient voiced understanding and agreement with the plan. Patient is hemodynamically stable at the time of disposition. (JOSHUA GUSMAN REGIONAL LIAISON) Course & Med Decision Making Did not see or evaluate patient. Did not discuss patient with PREMIUM NOTE INTEREST CALCULATOR CLERK. Generally agree with PREMIUM NOTE INTEREST CALCULATOR CLERK's work-up and disposition per note. (MIGUEL ANGEL KRISHNA MD) Dragon Disclaimer: Dragon Disclaimer: This electronic medical record was generated, in whole or in part, using a voice recognition dictation system. (JOSHUA GUSMAN REGIONAL LIAISON) Departure Departure: Impression: Primary Impression: Headache Qualified Codes: R51.9 - Headache, unspecified Additional Impression: Otitis media Qualified Codes: H66.90 - Otitis media, unspecified, unspecified ear Disposition: HOME / SELF CARE / HOMELESS Condition: GOOD Referrals: HENRIK MORALES (PCP) Patient Instructions: Migraine Headache, Otitis Media, Adult, [id number] Additional Instructions: You are seen in the emergency department today for migraine headache. Your work-up in the ER was unremarkable, you had negative COVID and influenza testing. CT scan and chest x-ray did not show any acute findings. Please take Tylenol, ibuprofen and your Imitrex as directed. You were noted to have a ear infection which will be treated with an antibiotic. Please start and finish the antibiotic completely. Increase your fluids and rest. Follow-up with your primary care provider tomorrow regarding your ER visit. Return to the emergency department if you develop worsening of your headache, confusion, poor coordination, speech changes, vision changes, intractable nausea or vomiting, neck stiffness, high fevers refractory to treatment or any new or worsening concerns. Scripts Amoxicillin (AMOXICILLIN) 875 Mg Tablet 1 TAB PO BID for ear infection for 5 Days, #10 TAB 0 Refills Prov: JOSHUA GUSMAN APRN 09/27/21 JOSHUA GUSMAN APRN Sep 27, 2021 17:50 MIGUEL ANGEL KRISHNA MD Sep 27, 2021 20:48
[2021-09-27] MEDS: KETOROLAC 30 MG/ML VIAL. IVP ONE (17:56)
--- NOTE | 2021-09-27 17:56 | RAD ---
CT Head W/O Contrast: History: Reason: headache, n/v fevrs / Spl. Instructions: / History: Comparison: December 18, 2020 Axial images were obtained without contrast. The vasquez and white matter appears normal and symmetrical for the patients age. There is no mass effe ct, extraaxial fluid collections or hydrocephalus. There is no gross bleed. There is no focal loss of vasquez-white matter distinction to suggest acute ischemia, i.e. stroke. Impression: No acute findings. RS Compliance Statement: One or more of the following individualized dose reduction techniques were utilized for this examinat ion: 1. Automated exposure control 2. Adjustment of the mA and/or kV according to patient size 3. Use of iterative reconstruction technique Electronically signed by: Angelito Estrada III, MD (09/27/2021 5:53 PM) [facility]
[2021-09-27] MEDS: PROCHLORPERAZINE 10 MG/2 ML VIAL. IV ONE (17:58)
[2021-09-27] MEDS: diphenhydrAMINE 50 MG/ML VIAL IVP ONE (17:58)
[2021-09-27] MEDS: IV NORMAL SALINE 1,000ML 1,000 ML IV ONE (17:59)
[2021-09-27 18:13] LABS: BASO % 1 % (0-3); CALCIUM 8.8 mg/dL (8.5-10.1); CREATININE 0.7 mg/dL (0.7-1.3); EOS # 0.1 x10^3/uL (0.0-0.7); EOS % 2 % (0-3); GFR 146.9; HEMATOCRIT 41.1 % (39.0-53.0); HEMOGLOBIN 13.8 g/dL (13.0-17.5); LYMPH # 1.9 x10^3/uL (1.0-4.8); LYMPH % 33 % (24-48); MEAN CORPUSCULAR HEMOGLOBIN 28 pg (25-35); MEAN CORPUSCULAR HGB CONC 34 g/dL (31-37); MEAN CORPUSCULAR VOLUME 84 fL (79-100); MONO # 0.4 x10^3/uL (0.0-1.1); MONO % 6 % (0-9); NEUT # 3.3 x10^3uL (1.8-7.7); NEUT % 58 % (31-73); PLATELET COUNT 229 x10^3/uL (140-400); RED CELL DISTRIBUTION WIDTH 13.5 % (11.5-14.5); WHITE BLOOD COUNT 5.7 x10^3/uL (4.0-11.0)
[2021-09-27 18:18] LABS: ALBUMIN 3.7 g/dL (3.4-5.0); TOTAL BILIRUBIN 0.3 mg/dL (0.2-1.0); TOTAL PROTEIN 7.3 g/dL (6.4-8.2)
[2021-09-27 18:32] LABS: INFLUENZA A PATIENT NEGATIVE (NEGATIVE); INFLUENZA B PATIENT NEGATIVE (NEGATIVE)
[2021-09-27] MEDS: DEXAMETHASONE SOD PHOS 10 MG/ML VIAL. IVP ONE (19:01)
--- NOTE | 2021-09-27 19:05 | RAD ---
XR CHEST 2V Technique: PA and lateral views of the chest were obtained. Clinical History: Reason: fever / Spl. Instructions: / History: Comparison: December 17, 2020. Findings: The heart and pulmonary vasculature appear within normal limits. The lungs are clear. The pleural ma rgins are clear. Impression: No acute chest process is seen. Electronically signed by: Angelito Estrada III, MD (09/27/2021 7:02 PM) [facility]
[2021-09-27] MEDS ORDERED: AMOX875T PO (19:21)
[2021-09-27 19:34] VITALS: BP 129/63
== END 2021-09-27 19:35 | disposition home or self-care (01) ==
LOC: ER 16:15
DX: G43.909 Migraine, unspecified, not intractable, without status migrainosus (principal); H66.92 Otitis media, unspecified, left ear; R11.2 Nausea with vomiting, unspecified; R19.7 Diarrhea, unspecified; E11.9 Type 2 diabetes mellitus without complications; E78.00 Pure hypercholesterolemia, unspecified; I10 Essential (primary) hypertension; F17.210 Nicotine dependence, cigarettes, uncomplicated; Z20.822 Contact with and (suspected) exposure to COVID-19; Z88.5 Allergy status to narcotic agent; Z88.6 Allergy status to analgesic agent
CPT/HCPCS: 36415; 70450; 71046; 80053; 83605; 85025; 87428; 96361; 96374; 96375; 99285; J0780; J1100; J1200; J1885; J7030

== ENCOUNTER 2021-10-03 15:58 | Emergency (ER) | payer OTHER ==
[~2021-10-03] VITALS: Ht 175.3 cm; Wt 106.4 kg
[~2021-10-03 15:58] MED LIST changes: +AMOX875T PO
[2021-10-03] MEDS ORDERED: IV NORMAL SALINE 1,000ML 1,000 ML IV SCH (17:00)
[2021-10-03] MEDS ORDERED: ACETAMINOPHEN 325 MG TABLET PO ONE (17:00)
--- NOTE | 2021-10-03 17:18 | RAD ---
EXAM: XR CHEST 1V 10/03/2021 4:54 PM CLINICAL INDICATION: Cough, chest pain COMPARISON: Chest radiograph 09/27/2021 TECHNIQUE: PA and lateral views of the chest FINDINGS: The heart and mediastinum are normal. Lungs are hypoexpanded. No consolidation, pleural effusion, or pneumothorax. Pulmonary vascularity is normal. No acute osseous abnormality. IMPRESSION: No acute cardiopulmonary abnormality. Electronically signed by: Nikki Briggs MD (10/03/2021 5:16 PM) [id number]
[2021-10-03] MEDS ORDERED: ONDANSETRON PF 4 MG/2 ML VIAL. ONE (17:41)
[2021-10-03] MEDS ORDERED: PROCHLORPERAZINE 10 MG/2 ML VIAL. IV ONE (17:45)
[2021-10-03] MEDS ORDERED: KETOROLAC 15 MG/ML VIAL. IVP ONE (17:45)
[2021-10-03] MEDS ORDERED: diphenhydrAMINE 50 MG/ML VIAL IVP ONE (17:45)
[2021-10-03 17:57] LABS: BASO % 1 % (0-3); EOS # 0.1 x10^3/uL (0.0-0.7); EOS % 2 % (0-3); HEMATOCRIT 40.2 % (39.0-53.0); HEMOGLOBIN 13.4 g/dL (13.0-17.5); LYMPH # 2.2 x10^3/uL (1.0-4.8); LYMPH % 36 % (24-48); MEAN CORPUSCULAR HEMOGLOBIN 28 pg (25-35); MEAN CORPUSCULAR HGB CONC 33 g/dL (31-37); MEAN CORPUSCULAR VOLUME 84 fL (79-100); MONO # 0.4 x10^3/uL (0.0-1.1); MONO % 6 % (0-9); NEUT # 3.5 x10^3uL (1.8-7.7); NEUT % 56 % (31-73); PLATELET COUNT 252 x10^3/uL (140-400); RED BLOOD COUNT 4.77 x10^6/uL (4.30-5.70); RED CELL DISTRIBUTION WIDTH 13.9 % (11.5-14.5); WHITE BLOOD COUNT 6.2 x10^3/uL (4.0-11.0)
[2021-10-03] MEDS ORDERED: ONDANSETRON PF 4 MG/2 ML VIAL. IVP ONE (18:00)
[2021-10-03 18:01] LABS: CALCIUM 8.7 mg/dL (8.5-10.1); CREATININE 0.9 mg/dL (0.7-1.3); GFR 109.9; POTASSIUM 4.2 mmol/L (3.5-5.1)
--- NOTE | 2021-10-03 18:19 | PHYS DOC ---
Past History Past Medical History: Diabetes, High Cholesterol, Hypertension, Migraines Additional Past Medical Histor: Heart murmur Past Surgical History: Appendectomy, Knee Replacement, Tonsillectomy, Other Additional Past Surgical Histo: shoulder surgery Smoking: Cigarettes Alcohol Use: Occasionally Drug Use: None Adult General Chief Complaint Chief Complaint: MULTIPLE COMPLAINTS HPI HPI Patient was seen at this facility 4 days ago with complaints of headache, cough, general malaise. Patient with full work-up at that time with negative COVID and flu, negative CT head, labs all the patient baseline. Patient returns today stating he is continued to feel poorly with ongoing headache. Patient reports ongoing general malaise and weakness. Patient now states he has pain to the left lateral rib cage when taking a deep breath. Patient denies any vomiting no diarrhea. Patient was on antibiotics for possible ear infection, states his ear no longer hurts but overall still does not feel any better. Review of Systems Review of Systems Constitutional: Chills, general malaise Eyes: Denies change in visual acuity, redness, or eye pain [] HENT: Denies nasal congestion or sore throat [] Respiratory: Mild cough Cardiovascular: No additional information not addressed in HPI [] GI: Denies abdominal pain, nausea, vomiting, bloody stools or diarrhea [] : Denies dysuria or hematuria [] Musculoskeletal: Denies back pain or joint pain [] Integument: Denies rash or skin lesions [] Neurologic: Ongoing headache, no focal weakness, no speech or sensory changes Endocrine: Denies polyuria or polydipsia [] All other systems were reviewed and found to be within normal limits, except as documented in this note. Current Medications Current Medications Current Medications Medications (Trade) Dose Ordered Sig/Jessica Start Time Stop Time Status Last Admin Dose Admin Acetaminophen (Tylenol) 1,000 mg 1X ONCE 10/03/21 17:00 10/03/21 17:01 DC 10/03/21 17:00 1,000 MG Diphenhydramine HCl (Benadryl) 25 mg 1X ONCE 10/03/21 17:45 10/03/21 17:46 DC 10/03/21 17:38 25 MG Ketorolac Tromethamine (Toradol 15mg Vial) 15 mg 1X ONCE 10/03/21 17:45 10/03/21 17:46 DC 10/03/21 17:38 15 MG Ondansetron HCl (Zofran) 4 mg 1X ONCE 10/03/21 18:00 10/03/21 18:01 DC 10/03/21 17:47 4 MG Prochlorperazine Edisylate (Compazine) 10 mg 1X ONCE 10/03/21 17:45 10/03/21 17:46 DC 10/03/21 17:38 10 MG Sodium Chloride 1,000 ml @ 1,000 mls/hr Q1H 10/03/21 17:00 10/03/21 17:59 DC 10/03/21 17:00 1,000 MLS/HR Allergies Allergies Allergies Coded Allergies Type Severity Reaction Last Updated Verified aspirin Allergy Intermediate hives 12/17/20 Yes morphine Adverse Reaction Mild vomiting 12/19/20 Yes Physical Exam Physical Exam Constitutional: Well developed, well nourished, no acute distress, non-toxic appearance. [] HENT: Normocephalic, atraumatic, bilateral external ears normal, oropharynx moist, no oral exudates, nose normal. [] Eyes: PERRLA, EOMI, conjunctiva normal, no discharge. [] Neck: Normal range of motion, no tenderness, supple, no stridor. [] Cardiovascular:Heart rate regular rhythm, no murmur [] Lungs & Thorax: Bilateral breath sounds clear to auscultation [] Abdomen: Bowel sounds normal, soft, no tenderness, no masses, no pulsatile masses. [] Skin: Warm, dry, no erythema, no rash. [] Back: No tenderness, no CVA tenderness. [] Extremities: No tenderness, no cyanosis, no clubbing, ROM intact, no edema. [] Neurologic: Alert and oriented X 3, normal motor function, normal sensory function, no focal deficits noted. [] Psychologic: Affect normal, judgement normal, mood normal. [] Current Patient Data Vital Signs Vital Signs Date Time Temp Pulse Resp B/P (MAP) Pulse Ox O2 Delivery O2 Flow Rate FiO2 10/03/21 17:04 99.3 85 16 177/90 (119) 98 Room Air Lab Results Laboratory Tests Test 10/03/21 17:10 White Blood Count 6.2 x10^3/uL (4.0-11.0) Red Blood Count 4.77 x10^6/uL (4.30-5.70) Hemoglobin 13.4 g/dL (13.0-17.5) Hematocrit 40.2 % (39.0-53.0) Mean Corpuscular Volume 84 fL (79-100) Mean Corpuscular Hemoglobin 28 pg (25-35) Mean Corpuscular Hemoglobin Concent 33 g/dL (31-37) Red Cell Distribution Width 13.9 % (11.5-14.5) Platelet Count 252 x10^3/uL (140-400) Neutrophils (%) (Auto) 56 % (31-73) Lymphocytes (%) (Auto) 36 % (24-48) Monocytes (%) (Auto) 6 % (0-9) Eosinophils (%) (Auto) 2 % (0-3) Basophils (%) (Auto) 1 % (0-3) Neutrophils # (Auto) 3.5 x10^3uL (1.8-7.7) Lymphocytes # (Auto) 2.2 x10^3/uL (1.0-4.8) Monocytes # (Auto) 0.4 x10^3/uL (0.0-1.1) Eosinophils # (Auto) 0.1 x10^3/uL (0.0-0.7) Basophils # (Auto) 0.0 x10^3/uL (0.0-0.2) D-Dimer (Shu) < 0.19 mg/L (0.00-0.50) Sodium Level 140 mmol/L (136-145) Potassium Level 4.2 mmol/L (3.5-5.1) Chloride Level 107 mmol/L (98-107) Carbon Dioxide Level 24 mmol/L (21-32) Anion Gap 9 (6-14) Blood Urea Nitrogen 10 mg/dL (8-26) Creatinine 0.9 mg/dL (0.7-1.3) Estimated GFR (Cockcroft-Gault) 109.9 Glucose Level 98 mg/dL (70-99) Calcium Level 8.7 mg/dL (8.5-10.1) EKG EKG [] Radiology/Procedures Radiology/Procedures [] Heart Score C/O Chest Pain: No Risk Factors: Risk Factors: DM, Current or recent (<one month) smoker, HTN, HLP, family history of CAD, obesity. Risk Scores: Risk Factors: DM, Current or recent (<one month) smoker, HTN, HLP, family history of CAD, obesity. Course & Med Decision Making Course & Med Decision Making Patient with extensive work-up just a few days ago including negative CT head, reassuring labs, negative COVID and flu testing. Patient will get repeat lab evaluation, we will add D-dimer as patient does have pleuritic left-sided chest pain. 1817-patient with reassuring work-up in the emergency department with labs continue to be at the patient baseline with no significant abnormality noted, D- dimer nonelevated. Patient with reassuring CT head within the last few days. Patient with significant improvement in overall symptoms in the emergency department with improved headache, no focal neurologic symptoms at any time. Overall patient felt to be stable for discharge home with outpatient follow-up, return precautions discussed at length [] Laboratory Tests Test 10/03/21 17:10 White Blood Count 6.2 x10^3/uL Red Blood Count 4.77 x10^6/uL Hemoglobin 13.4 g/dL Hematocrit 40.2 % Mean Corpuscular Volume 84 fL Mean Corpuscular Hemoglobin 28 pg Mean Corpuscular Hemoglobin Concent 33 g/dL Red Cell Distribution Width 13.9 % Platelet Count 252 x10^3/uL Neutrophils (%) (Auto) 56 % Lymphocytes (%) (Auto) 36 % Monocytes (%) (Auto) 6 % Eosinophils (%) (Auto) 2 % Basophils (%) (Auto) 1 % Neutrophils # (Auto) 3.5 x10^3uL Lymphocytes # (Auto) 2.2 x10^3/uL Monocytes # (Auto) 0.4 x10^3/uL Eosinophils # (Auto) 0.1 x10^3/uL Basophils # (Auto) 0.0 x10^3/uL D-Dimer (Shu) < 0.19 mg/L Sodium Level 140 mmol/L Potassium Level 4.2 mmol/L Chloride Level 107 mmol/L Carbon Dioxide Level 24 mmol/L Anion Gap 9 Blood Urea Nitrogen 10 mg/dL Creatinine 0.9 mg/dL Estimated GFR (Cockcroft-Gault) 109.9 Glucose Level 98 mg/dL Calcium Level 8.7 mg/dL Troponin I High Sensitivity 7 ng/L Current Medications Medications (Trade) Dose Ordered Sig/Jessica Route PRN Reason Start Time Stop Time Status Last Admin Dose Admin Acetaminophen (Tylenol) 1,000 mg 1X ONCE PO 10/03/21 17:00 10/03/21 17:01 DC 10/03/21 17:00 1,000 MG Sodium Chloride 1,000 ml @ 1,000 mls/hr Q1H IV 10/03/21 17:00 10/03/21 17:59 DC 10/03/21 17:00 1,000 MLS/HR Prochlorperazine Edisylate (Compazine) 10 mg 1X ONCE IV 10/03/21 17:45 10/03/21 17:46 DC 10/03/21 17:38 10 MG Diphenhydramine HCl (Benadryl) 25 mg 1X ONCE IVP 10/03/21 17:45 10/03/21 17:46 DC 10/03/21 17:38 25 MG Ketorolac Tromethamine (Toradol 15mg Vial) 15 mg 1X ONCE IVP 10/03/21 17:45 10/03/21 17:46 DC 10/03/21 17:38 15 MG Ondansetron HCl (Zofran) 4 mg 1X ONCE IVP 10/03/21 18:00 10/03/21 18:01 DC 10/03/21 17:47 4 MG Dragon Disclaimer Dragon Disclaimer This electronic medical record was generated, in whole or in part, using a voice recognition dictation system. Departure Departure: Impression: Primary Impression: Headache Additional Impression: Pleuritic chest pain Disposition: HOME / SELF CARE / HOMELESS Condition: STABLE Referrals: HENRIK MORALES PAC (PCP) Patient Instructions: General Headache Without Cause Additional Instructions: Return for worsening symptoms or other concerns. Contact your primary care physician for outpatient follow-up and further evaluation Problem Qualifiers HARI MEDLEY MD October 03, 2021 18:19
[2021-10-03] MEDS ORDERED: MORPHINE SULFATE 2 MG/ML DISP.SYRIN. ONE (18:23)
[2021-10-03 18:26] VITALS: BP 153/86
[2021-10-03] MEDS ORDERED: MORPHINE SULFATE 2 MG/ML DISP.SYRIN. IV ONE (18:30)
== END 2021-10-03 18:38 | disposition home or self-care (01) ==
LOC: ER 16:01
DX: G43.909 Migraine, unspecified, not intractable, without status migrainosus (principal); R07.81 Pleurodynia; E11.9 Type 2 diabetes mellitus without complications; E78.00 Pure hypercholesterolemia, unspecified; I10 Essential (primary) hypertension; F17.210 Nicotine dependence, cigarettes, uncomplicated; Z88.6 Allergy status to analgesic agent; Z88.5 Allergy status to narcotic agent
CPT/HCPCS: 36415; 71045; 80048; 84484; 85025; 85379; 96361; 96374; 96375; 99284; J0780; J1200; J1885; J2270; J2405; J7030